=== PATIENT | male | born 2000 | race Hispanic/Latino ===

== ENCOUNTER 2022-03-21 19:42 | Inpatient (IN) | payer OTHER ==
[~2022-03-21] VITALS: Ht 170.2 cm; Wt 120.2 kg
[2022-03-21 20:10] LABS: BASOPHILS % (AUTO) 0.3 % (0.0-5.0); EOSINOPHILS % (AUTO) 0.3 % (0.0-8.0); LYMPHOCYTES % (AUTO) 8.9 % (21.0-51.0); MEAN CORPUSCULAR HEMOGLOBIN 28.6 pg (27.0-33.0); MEAN CORPUSCULAR HGB CONC 33.9 g/dL (32.0-36.0); MEAN CORPUSCULAR VOLUME 84.4 fL (80-100); MONOCYTES % (AUTO) 5.6 % (3.0-13.0); NEUTROPHILS % (AUTO) 84.4 % (40.0-77.0); PLATELET COUNT (AUTO) 258 K/uL (130-400); RED BLOOD CELL COUNT(AUTO) 5.45 MIL/uL (4.50-6.20); RED CELL DISTRIBUTION WIDTH 12.3 % (11.0-15.5); WHITE BLOOD COUNT (AUTO) 11.5 K/uL (4.8-10.8)
[2022-03-21 20:21] LABS: CREATININE 0.8 mg/dL (0.5-1.5); POTASSIUM 3.7 mmol/L (3.5-5.1)
[2022-03-21] MEDS ORDERED: LIDOCAINE HCL 2% VISCOUS 15 ML UDCUP PO ONE (20:30)
[2022-03-21] MEDS ORDERED: MAG/ALUM/SIMETH 30 ML UDCUP PO ONE (20:30)
[2022-03-21 20:38] LABS: ALBUMIN 4.3 g/dL (3.5-5.0); TOTAL PROTEIN, SERUM 8.1 g/dL (6.0-8.3)
[2022-03-21] MEDS ORDERED: 0.9%NACL 1000ML 1,000 ML IV ONE (21:00)
[2022-03-21] MEDS ORDERED: ZOSYN 3.375GM +NS 50ML IV ONE (21:00)
[2022-03-21] MEDS ORDERED: IOHEXOL 350 MG/ML 100ML INFUS..BTL IV ONE (21:02)
[2022-03-21 21:03] VITALS: BP 118/70
[2022-03-21] MEDS ORDERED: MORPHINE 4 MG SYG IV PRN (21:30)
[2022-03-21] MEDS ORDERED: ONDANSETRON 4MG INJ IV PRN (21:30)
[2022-03-21] MEDS ORDERED: LACTATED RINGERS 1000ML 1,000 ML IV SCH (21:30)
[2022-03-21] MEDS ORDERED: MORPHINE 2 MG SYG IV PRN (21:30)
[2022-03-21 21:32] LABS: INR 1.07 (0.85-1.15); PROTHROMBIN TIME 11.6 SEC (9.6-11.6)
[2022-03-21 21:34] LABS: PARTIAL THROMBOPLASTIN TIME 22.6 SEC (26.3-35.5)
[2022-03-22] MEDS ORDERED: HEPARIN 5,000 UNIT VIAL SQ SCH (09:00)
[2022-03-22] MEDS ORDERED: FAMOTIDINE 20MG VIAL IV SCH (09:00)
== END 2022-03-21 22:30 | disposition left against medical advice (07) | DRG 446 ==
LOC: EDH 19:42 → EDHIP 19:43
PROVIDERS: ADMIT Internal Medicine; ATTEND Internal Medicine
DX: K80.42 Calculus of bile duct with acute cholecystitis without obstruction (principal); K76.0 Fatty (change of) liver, not elsewhere classified
CPT/HCPCS: 36415; 74177; 76705; 80053; 83605; 83690; 84484; 85025; 85610; 85730; 87040; G0378; J2543; Q9967

== ENCOUNTER → 2022-03-21 | Emergency (ER) | payer OTHER | END | disposition left against medical advice (07) | LOC: EDH 19:32 | DX: R07.89 Other chest pain (principal); R11.10 Vomiting, unspecified; Z53.21 Procedure and treatment not carried out due to patient leaving prior to being seen by health care provider ==

== ENCOUNTER 2024-09-23 15:12 | Emergency (ER) | payer SELFPAY ==
[~2024-09-23] VITALS: Ht 170.2 cm; Wt 131.5 kg
[~2024-09-23 15:12] MED LIST: FAMO-136 PO; ONDA-243 PO
--- NOTE | 2024-09-23 15:20 | ERN ---
ED Note History of Present Illness Stated Complaint: ABDOMINAL PAIN Chief Complaint: Abdominal Pain Time Seen by MD: 15:15 Dictation: PATIENT IS A 24-YEAR-OLD MALE COMING IN TODAY WITH A EPIGASTRIC PAIN WITHOUT NAUSEA VOMITING DIARRHEA. ONSET WAS THIS MORNING, STATES HE HAS A HISTORY OF GASTRITIS HOWEVER HAS NOT RECEIVED ANY TREATMENT FROM THIS NOR DOES HE HAVE A DOCTOR. STATES HIS LAST MEALS WERE TACOS LAST NIGHT AND HAS NOT EATEN TODAY. Allergies: Coded Allergies: No Known Drug Allergies (Unverified Allergy, Unknown, 03/21/22) Home Meds Active Scripts Ondansetron (Ondansetron Odt) 4 Mg Tab.rapdis, 4 MG PO TID PRN for NAUSEA, #30 TAB 0 Refills Prov:ROBERT HESS MD 10/15/22 Famotidine (Pepcid) 20 Mg Tablet, 20 MG PO BID for 7 Days, #15 TAB 0 Refills Prov:ROBERT HESS MD 10/15/22 Past Medical History Past Medical History: Other Additional Past Medical Hx: gastritis Surgical History: None Family History: Negative Social History: Negative, Lives with family RN Note Reviewed/Agreed w/PFSH: Yes Review of System Dictation CONSTITUTIONAL: NEGATIVE EXCEPT FOR HPI HEAD/FACE: NEGATIVE EXCEPT FOR HPI EENT: NEGATIVE EXCEPT FOR HPI RESPIRATORY: NEGATIVE EXCEPT FOR HPI GASTROINTESTINAL/ABDOMINAL: NEGATIVE EXCEPT FOR HPI BURNING EPIGASTRIC PAIN GENITOURINARY: NEGATIVE EXCEPT FOR HPI MUSCULOSKELETAL: NEGATIVE EXCEPT FOR HPI INTEGUMENTARY: NEGATIVE EXCEPT FOR HPI NEUROLOGICAL/PSYCH: NEGATIVE EXCEPT FOR HPI HEMATOLOGIC/LYMPHATIC: NEGATIVE EXCEPT FOR HPI ALL SYSTEMS NEGATIVE, EXCEPT NOTED ABOVE. 13 POINT REVIEW OF SYSTEMS ASSESSED AND ALL NEGATIVE EXCEPT FOR ABOVE. Initial Vital Sign VS Vital Signs Date Time Temp Pulse Resp B/P (MAP) Pulse Ox O2 Delivery O2 Flow Rate FiO2 09/23/24 15:14 98.1 74 15 159/89 100 Room Air 0 09/23/24 15:17 21 Physical Exam Dictation VITAL SIGNS REVIEWED GENERAL APPEARANCE: ALERT, ORIENTED X 3, MILD ACUTE DISTRESS, WELL DEVELOPED, NOURISHED. MORBID OBESITY HEAD AND FACE: NON-TRAUMATIC. EYES: PERRL, PINK CONJUNCTIVAS, EYELID NO TRAUMA, ANTERIOR CHAMBER WITH ARCUS SENILIS. EARS: PINNAS INTACT AND NO SIGNS OF TRAUMA OR ERYTHEMA EAR CANALS CLEAR AND NO DISCHARGE TM NO ERYTHEMA NOSE: NO DISCHARGE, NO BLEEDING. OROPHARYNX: MOUTH NORMAL, TONGUE PINK, PHARYNX CLEAR,NO ERYTHEMA, TONSILS NO EXUDATES, NO ABSCESSES NOTED, MUCOUS MEMBRANE MOIST NECK: SUPPLE, NON-TENDER, NO THYROMEGALY, NO MASSES, NO JVD, NO BRUITS BREAST:DEFERRED CHEST:NO TENDERNESS, NO CREPITUS, NO PARADOXICAL MOVEMENT, NO RETRACTIONS LUNGS:CLEAR, WELL-VENTILATED, SYMMETRIC, NO RALES, NO WHEEZING, NO RHONCHI, NO STRIDOR, GOOD BREATH SOUNDS BILATERALLY HEART: REGULAR RATE, REGULAR RHYTHM, NO MURMUR, NO GALLOPS VASCULAR: NO PERIPHERAL EDEMA, ABDOMEN: SOFT, POSITIVE BOWEL SOUNDS, NONDISTENDED, NO GUARDING, MILD EPIGASTRIC TENDERNESS WITH PALPATION NO REBOUND, NO MASSES NO HEPATOMEGALY, NO SPLE NOMEGALY, NO BENITEZ'S SIGN, NO HERNIAS. RECTAL: DEFERRED GENITAL: DEFERRED NEUROLOGICAL: NORMAL SPEECH, MOTOR FUNCTION INTACT, SENSORY FUNCTION INTACT MUSCULOSKELETAL: NECK NONTENDER, FULL RANGE OF MOTION, BACK NONTENDER, FULL RANGE OF MOTION, EXTREMITIES: NONTENDER, FULL RANGE OF MOTION SKIN: COLOR PINK, DRY, NO TURGOR, NO RASH, NO LACERATIONS, NO ABRASIONS, NO CONTUSIONS. LYMPHATIC: DEFERRED Results (Laboratory/Radiology) Laboratory/Radiology Laboratory Tests Test 09/23/24 16:39 White Blood Count 9.1 K/uL (4.8-10.8) Red Blood Count 5.65 MIL/uL (4.50-6.20) Hemoglobin 15.4 g/dL (14.0-18.0) Hematocrit 46.3 % (42-54) Mean Corpuscular Volume 81.9 fL (79-99) Mean Corpuscular Hemoglobin 27.3 pg (27.0-33.0) Mean Corpuscular Hemoglobin Concent 33.3 g/dL (32.0-36.0) Red Cell Distribution Width 12.9 % (11.0-15.5) Platelet Count 285 K/uL (130-400) Mean Platelet Volume 11.3 fL (7.5-10.5) H Immature Granulocyte % (Auto) 0.4 % (0-1) Neutrophils (%) (Auto) 84.0 % (40.0-77.0) H Lymphocytes (%) (Auto) 10.4 % (21.0-51.0) L Monocytes (%) (Auto) 4.5 % (3.0-13.0) Eosinophils (%) (Auto) 0.2 % (0.0-8.0) Basophils (%) (Auto) 0.5 % (0.0-5.0) Neutrophils # (Auto) 7.7 K/uL (1.8-7.7) Lymphocytes # (Auto) 1.0 K/uL (1.0-4.8) Monocytes # (Auto) 0.4 K/uL (0.1-1.0) Eosinophils # (Auto) 0.02 K/uL (0.00-0.70) Basophils # (Auto) 0.05 K/uL (0.00-0.20) Absolute Immature Granulocyte (auto 0.04 K/uL (0-1) Nucleated Red Blood Cells 0.0 % (0.0-0.19) Sodium Level 137 mmol/L (136-145) Potassium Level 4.4 mmol/L (3.5-5.1) Chloride Level 99 mmol/L (101-111) L Carbon Dioxide Level 30 mmol/L (21-32) Blood Urea Nitrogen 11 mg/dL (7-18) Creatinine 0.8 mg/dL (0.5-1.3) Glomerular Filtration Rate Calc 128 mL/min (>90) Random Glucose 114 mg/dL (70-105) H Total Calcium 9.5 mg/dL (8.5-10.1) Lipase 22 U/L (16-77) Labs Reviewed?: Yes ED Course ED Course Orders Procedure Category Date Status Time Lidocaine Hcl 2% PHA 09/23/24 Complete Viscous (Lidocaine Hcl 15:30 Mag/Alum/Simeth 30ml PHA 09/23/24 Complete (Maalox Plus 30ml) 15:30 Famotidine 20mg Tab PHA 09/23/24 Complete (Pepcid 20mg Tab) 15:30 Dicyclomine Hcl PHA 09/23/24 Complete (Bentyl 10mg/5ml 15:30 Cbc With Differential LAB 09/23/24 Complete 16:32 Lipase LAB 09/23/24 Complete 16:32 Basic Metabolic Panel LAB 09/23/24 Complete 16:32 Current Medications Medications (Trade) Dose Ordered Sig/Susu Route PRN Reason Start Time Stop Time Status Last Admin Dose Admin Al Hydroxide/Mg Hydroxide (MAALox PLUS 30ML) 30 ml ONCE ONCE PO 09/23/24 15:30 09/23/24 15:31 DC 09/23/24 15:34 Dicyclomine HCl (Bentyl 10mg/5ml Syrup) 10 mg ONCE ONCE PO 09/23/24 15:30 09/23/24 15:31 DC 09/23/24 15:34 Famotidine (Pepcid 20mg Tab) 20 mg ONCE ONCE PO 09/23/24 15:30 09/23/24 15:31 DC 09/23/24 15:34 Lidocaine HCl (Lidocaine HCl 2% Viscous) 10 ml ONCE ONCE PO 09/23/24 15:30 09/23/24 15:31 DC 09/23/24 15:35 Vital Signs Date Time Temp Pulse Resp B/P (MAP) Pulse Ox O2 Delivery O2 Flow Rate FiO2 09/23/24 15:17 98.1 74 18 159/89 100 Room Air* 0 21 09/23/24 15:14 98.1 74 15 159/89 100 Room Air 0 1630/PATIENT STATES NO CHANGE IN PAIN AFTER GI COCKTAIL AND PEPCID. WE WILL FOLLOW UP WITH BASIC LABS TO INCLUDE CBC BNP AND LIPASE. NO IMAGING [id number] 1700/LABS UNREMARKABLE LIPASE IS NORMAL. DISCHARGE PATIENT HOME WITH A ACUTE GASTRITIS HAVE HIM FOLLOW UP WITH DR. Rosales/Gastroenterology. In addition we will prescribed Carafate and omeprazole and struck patient on a bland diet Medical Decision Making MDM Decision-making based on basic labs for abdominal pain. Labs unremarkable, lipase unremarkable. Patient discharged home with Carafate and omeprazole Given instructions on a bland diet with water for fluids only. Avoid spicy foods, alcohol, tobacco, bubbly drinks, soda pop, citrus fruit juice, ice tea until cleared by Gastroenterology Provide the name of Dr. Donn Rosales DX & DISP Disposition: Discharge Departure Impression: Primary Impression: Acute gastritis Condition: Stable Scripts Omeprazole (Omeprazole) 40 Mg Capsule.dr 1 CAP PO DAILY for 30 Days, #30 CAP 0 Refills Prov: LEONOR AYALA ANODE BUILDER 09/23/24 Sucralfate (Carafate) 1 Gram Tablet 1 GM PO ACHS for 10 Days, #40 TAB Prov: LEONOR AYALA ANODE BUILDER 09/23/24 Additional Instructions: Follow-up with primary care provider in 1 to 2 days. Take medications as directed here in the emergency room. Okay to continue home medications unless otherwise discussed during your visit in the emergency room today. Return to your nearest emergency room if symptoms worsen or if there is no improvement. Call 911 if you need immediate assistance. Take Tylenol or Motrin [id number] as needed and if no contraindications are present. Increase oral hydration. A wound culture or urine culture was ordered here in the emergency room department please follow-up with primary care provider and advise them to get repeat ports from our facility. If you had any Miguel Angel wrap/splints that were applied here, please do not remove them until you see your primary care or specialty. Take Carafate before meals and bedtime as directed. Take omeprazole as directed daily. Follow a bland diet with water for fluids only. No alcohol, no spicy foods, no ice tea, no soda pop, no bubbly drinks, no spicy foods, no citrus fruit juice until cleared by Gastroenterology. Call for an appointment on Wednesday. Referrals: SELF,REFERRAL (PCP) DONN ROSALES MD Time of Disposition: 17:02 I have reviewed the case, and I agree with, Diagnosis and Plan LEONOR AYALA NP Sep 23, 2024 15:20
[2024-09-23] MEDS: MAG/ALUM/SIMETH 30 ML UDCUP PO ONE (15:34)
[2024-09-23] MEDS: DICYCLOMINE HCL 10 MG/5 ML ML PO ONE (15:34)
[2024-09-23] MEDS: FAMOTIDINE 20MG TAB PO ONE (15:34)
[2024-09-23] MEDS: LIDOCAINE HCL 2% VISCOUS 15 ML UDCUP PO ONE (15:35)
[2024-09-23 16:47] LABS: BASOPHILS # (AUTO) 0.05 K/uL (0.00-0.20); BASOPHILS % (AUTO) 0.5 % (0.0-5.0); EOSINOPHILS # (AUTO) 0.02 K/uL (0.00-0.70); EOSINOPHILS % (AUTO) 0.2 % (0.0-8.0); HEMATOCRIT 46.3 % (42-54); IMMATURE GRANULOCYTE ABSOLUTE 0.04 K/uL (0-1); LYMPHOCYTES % (AUTO) 10.4 % (21.0-51.0); MEAN CORPUSCULAR HEMOGLOBIN 27.3 pg (27.0-33.0); MEAN CORPUSCULAR HGB CONC 33.3 g/dL (32.0-36.0); MEAN CORPUSCULAR VOLUME 81.9 fL (79-99); MONOCYTES # (AUTO) 0.4 K/uL (0.1-1.0); MONOCYTES % (AUTO) 4.5 % (3.0-13.0); NEUTROPHILS # (AUTO) 7.7 K/uL (1.8-7.7); PLATELET COUNT (AUTO) 285 K/uL (130-400); RED BLOOD CELL COUNT(AUTO) 5.65 MIL/uL (4.50-6.20); RED CELL DISTRIBUTION WIDTH 12.9 % (11.0-15.5); WHITE BLOOD COUNT (AUTO) 9.1 K/uL (4.8-10.8)
[2024-09-23 16:56] LABS: CREATININE 0.8 mg/dL (0.5-1.3); POTASSIUM 4.4 mmol/L (3.5-5.1)
[2024-09-23] MEDS ORDERED: SUCR1TAB28 PO (17:03)
[2024-09-23] MEDS ORDERED: OMEP40CA21 PO (17:03)
[2024-09-23 17:07] VITALS: BP 150/80; PULSE 70; RESP 18; TEMP 98; O2SAT 100
== END 2024-09-23 17:13 | disposition home or self-care (01) ==
LOC: EDH 15:12
DX: K29.00 Acute gastritis without bleeding (principal)
CPT/HCPCS: 36415; 80048; 83690; 85025; 99284